=== PATIENT | female | born 1950 | race Caucasian/White ===

== ENCOUNTER 2018-08-22 02:23 | Outpatient (CLI) | payer MEDICARE, SELFPAY | END 2018-08-22 02:43 | PROVIDERS: PCP Family Medicine; Visit Provider Specialist/Technologist Athletic Trainer | DX: R69 Illness, unspecified (principal) ==

== ENCOUNTER 2022-02-01 16:43 | Outpatient (REF) | payer MEDICARE, SELFPAY ==
[2022-02-01 16:39] LABS: HCT 41.1 % (36.0-46.0); HGB 13.6 g/dL (11.2-15.7); MCH 29.3 pg (27.0-33.0); MCHC 33.1 % (32.0-36.0); MCV 89 fL (80-95); MPV 10.5 fL (8.0-11.0); Platelet Count 246 10^3/uL (130-400); RBC 4.64 10^6/uL (3.93-5.22); RDW 12.9 % (11.7-14.6); RDW-SD 41.9 fL
[2022-02-01 17:10] LABS: TSH (W/Ref FT4) 3.27 uIU/mL (0.36-3.74)
[2022-02-02 04:49] LABS: Vitamin D 25 Total 36.1 ng/mL (30-100)
== END 2022-02-01 16:44 | disposition home or self-care (01) ==
LOC: NCHCN 16:43
PROVIDERS: PCP Family Medicine; Visit Provider Nurse Practitioner Family
DX: R53.83 Other fatigue (principal); F41.8 Other specified anxiety disorders
CPT/HCPCS: 82306; 85027; 84443

== ENCOUNTER 2022-07-14 11:11 | Outpatient (REF) | payer MEDICARE, SELFPAY ==
[2022-07-14 15:13] LABS: HGB 11.4 g/dL (11.2-15.7); MCH 28.1 pg (27.0-33.0); MCHC 31.7 % (32.0-36.0); MCV 89 fL (80-95); MPV 10.3 fL (8.0-11.0); Platelet Count 259 10^3/uL (130-400); RBC 4.06 10^6/uL (3.93-5.22); RDW 14.1 % (11.7-14.6); WBC 12.23 10^3/uL (4.4-10.8)
== END 2022-07-14 11:12 | disposition home or self-care (01) ==
LOC: NCHCN 11:11
PROVIDERS: PCP Family Medicine; Visit Provider Family Medicine
DX: J18.9 Pneumonia, unspecified organism (principal); R09.02 Hypoxemia; E87.6 Hypokalemia
CPT/HCPCS: 85027

== ENCOUNTER 2022-08-07 16:55 | Outpatient (REF) | payer MEDICARE, SELFPAY ==
[2022-08-07 20:27] LABS: ALT 12 U/L (14-59); AST 20 U/L (15-37); Albumin 3.6 g/dL (3.4-5.0); Alkaline Phosphatase 139 U/L (46-116); BUN 24 mg/dL (7-18); Bilirubin, Total 0.4 mg/dL (0.2-1.0); CREATININE 1.1 mg/dL (0.55-1.02); Calcium 9.1 mg/dL (8.5-10.1); Chloride 103 mmol/L (98-107); Estimated GFR 53.06 (mL/min/1.73m2); Glucose 104 mg/dL (74-106); Potassium 3.4 mmol/L (3.5-5.1); Sodium 140 mmol/L (136-145); Total Protein 7.1 g/dL (6.4-8.2)
== END 2022-08-07 16:56 | disposition home or self-care (01) ==
LOC: NCHCN 16:55
PROVIDERS: PCP Family Medicine; Visit Provider Family Medicine
DX: J18.9 Pneumonia, unspecified organism (principal); R09.02 Hypoxemia; E87.6 Hypokalemia; R53.83 Other fatigue
CPT/HCPCS: 80053

== ENCOUNTER 2022-10-05 00:54 | Outpatient (CLI) | payer MEDICARE, SELFPAY ==
--- NOTE | 2022-10-05 | DI.CT_ITS ---
Exam(s) CT CHEST W EXAM: CT CHEST W CLINICAL HISTORY: ABNL CHEST CT, R91.8, F/U CT [facility]ONE [facility] 03/20/22/05/22/22 TECHNIQUE: Imaging Protocol: Axial computed tomography images with coronal and sagittal reformatted images were created and reviewed CONTRAST MATERIAL: Intravenous: Omnipaque 350 Contrast volume:85 ml. COMPARISON: CT CT ANGIO CHEST from 05/22/2022 FINDINGS: Pulmonary parenchyma: No consolidation. No dominant measurable mass. Minimal right upper lobe scarri ng. Tracheobronchial tree: No bronchiectasis or mucous plugging. Mediastinum and Fatimah: No dominant adenopathy or fluid collection. Pleura: No effusion or pneumothorax. Heart: The heart is not dilated. No coronary artery calcifications are seen. Aorta: Thoracic aorta non-dilated. Upper abdomen: Status post cholecystectomy. Stable biliary dilatation. Bones: Degenerative changes. Soft tissues: Unremarkable. IMPRESSION: Complete clearing of previously noted right upper lobe pneumonia. No new abnormality. RADIATION DOSE DELIVERED: 392.66mGy.cm Total DLP DATA REPOSITORY: All CT scans at this facility are submitted to the National Radiology Data Registry (NRDR) Dose Index Registry (DIR) with the [employer] (A[employer]). RADIATION OPTIMIZATION: All CT scans at this facility use at least one of these dose optimization te chniques: automated exposure control; mA and/or kV adjustment per patient size (includes targeted exa ms where dose is matched to clinical indication); or iterative reconstruction.
[2022-10-05 13:59] LABS: Anion Gap 5.8 mmol/L (3-11); BUN 25 mg/dL (7-18); CO2 28.2 mmol/L (21.0-32.0); CREATININE 0.9 mg/dL (0.55-1.02); Calcium 8.9 mg/dL (8.5-10.1); Chloride 105 mmol/L (98-107); Glucose 132 mg/dL (74-106); Potassium 3.4 mmol/L (3.5-5.1); Sodium 139 mmol/L (136-145)
[2022-10-05] MEDS: Omnipaque 350 MG/ML 500 ML BTL-Imaging package 100 ML IJ (14:25)
[2022-10-05] MEDS: Normal Saline - Diluent 50 ML VIAL IJ (14:26)
== END 2022-10-05 01:14 ==
LOC: DI 00:55
PROVIDERS: PCP Family Medicine; Visit Provider Nurse Practitioner Family
DX: R91.8 Other nonspecific abnormal finding of lung field (principal); J98.4 Other disorders of lung; E87.6 Hypokalemia; I10 Essential (primary) hypertension
CPT/HCPCS: 80048; 71260

== ENCOUNTER → 2022-10-25 13:10 | Outpatient (BNVA) | payer MEDICARE, SELFPAY | PROVIDERS: PCP Family Medicine; Referring Provider Family Medicine; Visit Provider Psychiatry & Neurology Neurology | DX: G25.0 Essential tremor (principal); R26.89 Other abnormalities of gait and mobility; Z98.890 Other specified postprocedural states; Z90.710 Acquired absence of both cervix and uterus | CPT/HCPCS: 99204 ==

== ENCOUNTER 2022-10-30 15:52 | Outpatient (REF) | payer MEDICARE, SELFPAY ==
[2022-10-30 19:45] LABS: Hemoglobin A1C 5.8 % (<5.7)
[2022-10-30 20:10] LABS: Vitamin B12 491 pg/mL (193-986)
[2022-11-01 13:02] LABS: Albumin g/dL 3.9 g/dL (3.6-5.2); Total Protein 6.9 g/dL (6.3-8.2)
[2022-11-03 13:54] LABS: Methylmalonic Acid 0.17 nmol/mL (<=0.40)
== END 2022-10-30 15:53 | disposition home or self-care (01) ==
LOC: NCHCN 15:52
PROVIDERS: PCP Family Medicine; Visit Provider Nurse Practitioner Family
DX: R27.0 Ataxia, unspecified (principal); G25.0 Essential tremor; Z51.81 Encounter for therapeutic drug level monitoring; Z79.899 Other long term (current) drug therapy; R73.09 Other abnormal glucose
CPT/HCPCS: 80186; 82607; 83036; 83874; 84165

== ENCOUNTER 2023-03-12 16:04 | Outpatient (REF) | payer OTHER, SELFPAY ==
[2023-03-12 16:19] LABS: HCT 40.9 % (36.0-46.0); HGB 13.4 g/dL (11.2-15.7)
[2023-03-12 16:37] LABS: Anion Gap 7.5 mmol/L (3-11); BUN 13 mg/dL (7-18); C-Reactive Protein 0.61 mg/dL (0.0-0.3); CO2 28.5 mmol/L (21.0-32.0); CREATININE 0.7 mg/dL (0.55-1.02); Calcium 9.1 mg/dL (8.5-10.1); Chloride 102 mmol/L (98-107); Estimated GFR 91.26 (mL/min/1.73m2); Glucose 112 mg/dL (74-106); Potassium 3.8 mmol/L (3.5-5.1); Sodium 138 mmol/L (136-145)
[2023-03-12 16:40] LABS: ESR 18 mm/hr (0-30)
[2023-03-12 22:18] LABS: Rheumatoid Factor <8.6 IU/mL (<12.0)
== END 2023-03-12 16:05 | disposition home or self-care (01) ==
LOC: NCHCN 16:04
PROVIDERS: Visit Provider Family Medicine
DX: R27.0 Ataxia, unspecified (principal); F11.20 Opioid dependence, uncomplicated; R73.03 Prediabetes; M25.511 Pain in right shoulder; R25.1 Tremor, unspecified
CPT/HCPCS: 80048; 85652; 85014; 85018; 86140; 86431

== ENCOUNTER → 2023-08-10 14:46 | Outpatient (CLI) | payer OTHER, SELFPAY ==
--- NOTE | 2023-08-10 | DI.RAD_ITS ---
Exam(s) XR CHEST 2V PA LATERAL EXAM: XR CHEST 2V PA LATERAL CLINICAL HISTORY: COUGH R05.9 TECHNIQUE: 2D digital imaging was performed of the chest. Two images were obtained. PA and lateral views were obtained. COMPARISON: CR XR CHEST SINGLE VIEW from 05/22/2022 FINDINGS: MEDIASTINUM: Normal. HEART: Normal. PULMONARY VASCULATURE: Normal. LUNGS: Clear. PLEURAL SPACE: No pleural effusion or pneumothorax. BONE:Within normal limits for the patient's age. There are marked degenerative changes seen at the l eft glenohumeral joint. OTHER FINDINGS:Normal. IMPRESSION: No acute pulmonary findings. DATA REPOSITORY: RADIATION DOSE DELIVERED:
== END ==
PROVIDERS: PCP Family Medicine; Visit Provider Nurse Practitioner Family
DX: R05.9 Cough, unspecified (principal)
CPT/HCPCS: 71046

== ENCOUNTER 2023-08-30 15:43 | Outpatient (REF) | payer OTHER, SELFPAY ==
[2023-08-30 18:46] LABS: Abs Immature Grans 0.02 10^3/uL (0.0-0.06); Absolute Basophil Count 0.08 10^3/uL (0.0-0.2); Absolute Eosinophil Count 0.34 10^3/uL (0.0-0.7); Absolute Monocyte Count 0.46 10^3/uL (0.1-0.8); Absolute Neutrophil Count 5.26 10^3/uL (1.2-6.7); Eosinophils % 4.2; HCT 44.2 % (36.0-46.0); HGB 14.3 g/dL (11.2-15.7); Immature Grans % 0.2; Lymphocytes % 23.6; MCH 28.2 pg (27.0-33.0); MCHC 32.4 % (32.0-36.0); MCV 87 fL (80-95); Monocytes % 5.7; Neutrophils % 65.3; Platelet Count 293 10^3/uL (130-400); RBC 5.07 10^6/uL (3.93-5.22); RDW 12.8 % (11.7-14.6); RDW-SD 40.3 fL; WBC 8.06 10^3/uL (4.4-10.8)
[2023-08-30 19:09] LABS: ALT 21 U/L (14-59); AST 21 U/L (15-37); Albumin 3.7 g/dL (3.4-5.0); Alkaline Phosphatase 163 U/L (46-116); Anion Gap 9.9 mmol/L (3-11); BUN 21 mg/dL (7-18); Bilirubin, Total 0.4 mg/dL (0.2-1.0); CO2 29.1 mmol/L (21.0-32.0); CREATININE 0.9 mg/dL (0.55-1.02); Calcium 9.2 mg/dL (8.5-10.1); Calculated LDL 131 mg/dL (<100); Chloride 102 mmol/L (98-107); Cholesterol 226 mg/dL (<200); Estimated GFR 67.08 (mL/min/1.73m2); Glucose 89 mg/dL (74-106); HDL Cholesterol 80 mg/dL (40-60); Magnesium 1.9 mg/dL (1.8-2.4); Potassium 3.9 mmol/L (3.5-5.1); Sodium 141 mmol/L (136-145); TSH (W/Ref FT4) 2.61 uIU/mL (0.36-3.74); Total Protein 7.4 g/dL (6.4-8.2); Triglyceride 77 mg/dL (<150)
[2023-08-30 19:13] LABS: Hemoglobin A1C 5.5 % (<5.7)
== END 2023-08-30 15:44 | disposition home or self-care (01) ==
LOC: NCHCN 15:43
PROVIDERS: PCP Family Medicine; Visit Provider Nurse Practitioner Family
DX: D64.9 Anemia, unspecified (principal); I10 Essential (primary) hypertension; E78.5 Hyperlipidemia, unspecified; R73.03 Prediabetes; F41.8 Other specified anxiety disorders; K21.9 Gastro-esophageal reflux disease without esophagitis
CPT/HCPCS: 80053; 80061; 83036; 83735; 84443; 85025

== ENCOUNTER → 2023-10-03 04:35 | Outpatient (CLI) | payer OTHER, SELFPAY ==
--- NOTE | 2023-10-03 10:30 | DI.US_ITS ---
APPROVED REPORT EXAM: Comprehensive 2D, Doppler, and color-flow Echocardiogram Patient Location: Out-Patient Attendance Secretary: Elena Zhong RDCS (AE) Indications: Dyspnea Other Information Study Quality: Adequate. Technically limited study due to body habitus. Conclusion Normal left ventricular wall thickness and chamber size. EF is 60%. Wall motion is normal . diastolic function is normal for age Normal right ventricular size and function Both atria are n ormal in size Mildly sclerotic trileaflet aortic valve without stenosis or regurgitation Mild mitral and tricuspid regurgitation Estimated right ventricular systolic pressure is 35 mmHg Wall motion Left Ventricle The left ventricle is normal size. The left ventricular systolic function is normal. The left ventric ular ejection fraction is within the normal range. There is normal left ventricular wall thickness. T here is normal LV segmental wall motion. There is no ventricular septal defect visualized. LVEF is 60 %. Right Ventricle The right ventricle is normal size. The right ventricular systolic function is normal. Atria The left atrium size is normal. The right atrium size is normal. The interatrial septum is intact wit h no evidence for an atrial septal defect. Aortic Valve The Aortic valve is mildly sclerotic. Aortic valve is trileaflet. There is no aortic valvular stenosi s. No aortic regurgitation is present. Mitral Valve The mitral valve is normal in structure. No evidence of mitral valve stenosis. Mild mitral regurgita tion. Tricuspid Valve The tricuspid valve is normal in structure. There is no tricuspid valve stenosis. mild tricuspid reg urgitation. The RVSP is 34.6 mmHg. Pulmonic Valve The pulmonary valve is normal in structure. There is no pulmonic valvular stenosis. Trace pulmonic re gurgitation. Great Vessels The aortic root is normal in size. Ascending aorta is not well visualized. Aortic arch is normal in c aliber. IVC is normal in size and collapses >50% with inspiration. Pericardium There is no pericardial effusion. 2D Dimensions IVSD d PLAX 0.93 cm F: 0.6-1.0 Ao Root d 2.55 cm F: 2.7 - 3.3 LVPW d PLAX 0.90 cm F: 0.6 - 1.0 LVID d PLAX 4.29 cm F: 3.8 - 5.2 LVDs 2.93 cm F: 2.2 - 3.5 LV EF Teichholz 60.2 % FS 31.81 % LV EDV (Teich) 82.8 mL LV ESV (Teich) 33.0 mL M-Mode TAPSE 2.72 cm (M/F) >1.7 Auto EF LV EDV A4C 79.2 mL LV EDV A2C 69.7 mL LV EDV BP 73.9 mL LV ESV A4C 31.2 mL LV ESV A2C 27.4 mL LV ESV BP 29.3 mL LVEF(%) A4C 60.6 % LVEF(%) A2C 60.6 % LVEF(%) BP 60.3 % LV SV A4C 48.0 ml LV SV A2C 42.2 ml LV SV BP 44.6 ml LV CO A4C 3.5 L/min LV CO A2C 3.1 L/min LV CO BP 3.3 L/min HR A4C 72.43 BPM HR A2C 73.03 BPM LV EDV Index (BP) LA Volume LA Length A4C 4.1 cm LA Length A2C 4.2 cm LA Area A4C s 12.88 cm2 LA Area A2C s 14.47 cm2 LA Vol A4C A-L 34.18 mL LA Vol A2C A-L 42.35 mL LA Vol Biplane A-L 38.4 mL LA Vol/BSA A4C A-L LA Vol/BSA A2C A-L LA Vol/BSA BP A-L 24.9 mL/m2 LA Vol A4C MOD 32.2 mL LA Vol A2C MOD 38.0 mL LA Vol BP MOD 35.2 mL RA Volume RA Area A4C 8.9 cm2 RA ESV A4C (A-L) 17.6mL RA Vol/BSA A4C A-L RA Length A4C 3.8 cm RA ESV A4C (MOD) 17.6mL LV Diastology MV E' medial 0.067 (>0.07 m/s) MV E Vmax 1.03 (0.4-1.3 m/s) MV E/E' MED 15.41 (<14) MV A Vmax 1.20 (0.4-1.3 m/s) MV E' lateral 0.092 (>0.1 m/s) E/A Ratio 0.9 MV E/E' LAT 11.09 (<14) MV E' Average 0.080 m/s MV E/E'(average) 12.90 Aortic Valve AoV Vmax 1.50 m/s LVOT Vmax 1.15 m/s AoV Peak Grad 9.0 mmHg LVOT Peak Grad 5.3 mmHg AoV Area (Vmax) 2.49 cm2 LVOT VTI 0.257 m AoV VTI 0.350 m LVOT Mean Grad 2.9 mmHg AoV Mean Lorenzo. 1.11 m/s LVOT SV 83.08 mL AoV Mean Grad 5.5 mmHg LVOT Diam s 2.00 cm AoV Area (VTI) 2.37 cm2 Velocity Ratio 0.77 Mitral Valve MV DT 259 (160-240 msec) MV Vmax TIPS 1.19 m/s MV Mean Grad 2.9 (<2mmHg) MV VTI 0.370 m Pulmonary Valve PV Vmax 0.93 (0.5-1.5 m/s) RVOT Vmax 0.65 m/s PV Peak Grad 3.5 mmHg RVOT Peak Gr. 1.7 mmHg PV Mean Lorenzo 0.72 m/s RVOT VTI 0.181 m PV Mean Grad 2.3 mmHg RVOT Mean Gr. 0.9 mmHg Tricuspid Valve RA Pressure 3.00 mmHg TR Vmax 2.81 m/s TV S' 0.16 m/s TR Peak Grad 31.6 mmHg RVSP (TR) 34.6 mmHg
== END ==
PROVIDERS: PCP Family Medicine; Visit Provider Family Medicine
DX: R06.00 Dyspnea, unspecified (principal)
CPT/HCPCS: 93306

== ENCOUNTER → 2023-11-05 12:41 | Outpatient (BNVA) | payer OTHER, SELFPAY | PROVIDERS: PCP Family Medicine; Referring Provider Family Medicine; Visit Provider Student in an Organized Health Care Education/Training Program | DX: R09.02 Hypoxemia (principal) | CPT/HCPCS: 99205 ==

== ENCOUNTER → 2023-11-12 04:02 | Outpatient (CLI) | payer OTHER, SELFPAY ==
--- NOTE | 2023-11-12 | DI.DEXA_ITS ---
Exam(s) XR DEXA BONE DENSITY W/WO VANDA EXAM: XR DEXA BONE DENSITY W/WO VANDA CLINICAL HISTORY: SCREENING OSTEOPOROSIS, Z78.0, ASYMPTOMATIC MENOPAUSAL STATE TECHNIQUE: [employer] Horizon C densitometer analysis of left hip, lumbar spine and left forearm. Lat eral survey image of the thoracic and lumbar spine. COMPARISON: 2005 FINDINGS: Lateral view of the thoracic and lumbar spine shows no evidence of compression fractures. Bone mineral density measurements of the lumbar spine correspond to a total T-score of 3.1, in the n ormal range. This represents a 35.7 percent increase from 2005. The L3 vertebral body was excluded. The increase in bone density could be in part secondary to degenerative changes noted at L1-2. The L4 vertebral body T-score is 2.2. Bone mineral density measurements of the left hip correspond to a total T-score of -0.2. The femora l neck T-score is -0.6, in the normal range. This represents a 4.9 percent increase from 2005.. Theleft forearm bone mineral density measurements correspond to a T-score of the distal 3rd of -0.5, in the normal range. The forearm was not analyzed in 2004.. IMPRESSION: Normal bone mineral density.
--- NOTE | 2023-11-12 12:20 | DI.MAMMO_ITS ---
Exam(s) MAMMO SCREENING EXAM: MAMMO SCREENING CLINICAL HISTORY: SCREENING, Z12.31. TECHNIQUE: Bilateral full field digital CC and MLO mammographic images were obtained with 3D tomosyn thesis and utilizing computer aided detection (CAD). COMPARISON: None. Last mammogram was 2013 and not available for comparison. FINDINGS: There are no spiculated masses nor malignant appearing microcalcification groups. There is no significant architectural distortion nor skin thickening-retraction. IMPRESSION: No radiographic evidence of malignancy. BI-RADS Category 1 - Negative Breast Density - Category B - Scattered areas of fibroglandular density Breast density Category C or D implies that the patient has dense breast tissue. Dense breast tissue can make it harder to find cancer on a mammogram. Dense breast tissue is also associated with an incr eased risk of breast cancer. This information about the result of the mammogram report was provided to the patient to raise their awareness. Use this report when you speak with the patient about their risks for breast cancer, which includes their family history. At that time, you may recommend additional screening tests (Ultrasoun d or MRI) as these tests may add significant information. A negative radiographic report should not delay biopsy if a dominant or clinically suspicious mass is present. Up to ten percent of cancers are not identified on mammography. A negative report may reinforce clinical impression. Adenosis and dense breasts may obscure an underlying neoplasm. False positive reports average 6 to 10%. Patient will receive a letter notifying them of these results.
== END ==
PROVIDERS: PCP Family Medicine; Visit Provider Family Medicine
DX: Z78.0 Asymptomatic menopausal state (principal); Z13.820 Encounter for screening for osteoporosis; Z12.2 Encounter for screening for malignant neoplasm of respiratory organs
CPT/HCPCS: 77063; 77067; 77080

== ENCOUNTER 2023-12-20 03:01 | Outpatient (CLI) | payer OTHER, SELFPAY ==
[2023-12-20 13:30] LABS: BE 6 mmol/L (-2-3); HCO3 31 mmol/L (22-26); pCO2 49 mmHg (35-45); pO2 103 mmHg (80-105); sO2 98 % (95-98); tCO2 28 mmol/L (23-27)
[2023-12-20 13:31] LABS: FIO2L 2 L; Site Right Radial
== END 2023-12-20 03:02 | disposition home or self-care (01) ==
LOC: RT 03:02
PROVIDERS: PCP Family Medicine; Visit Provider Student in an Organized Health Care Education/Training Program
DX: R09.02 Hypoxemia (principal); R06.00 Dyspnea, unspecified; R05.9 Cough, unspecified
CPT/HCPCS: 82805

== ENCOUNTER 2023-12-20 03:02 | Outpatient (CLI) | payer OTHER, SELFPAY ==
[2023-12-20] MEDS: Albuterol HFA 18 GM 200 PUFF INH IH (15:11)
[2023-12-20] MEDS: Inhaler, Assist Device 1 EACH MC (15:11)
[2023-12-20] MEDS: Methacholine 100 MG VIAL IH (15:11)
--- NOTE | 2024-01-01 08:52 | W.PFT ---
Date of service: 12/20/23 Time of Service: 13:16 Pulmonary Function Test Result Requesting Provider Terra Yee Indications: Hypoxia Interpretation Spirometry: decreased FEV1/FVC w/ moderate decrease in FEV1. No reversibility after albuterol. Impression Moderate obstructive ventilatory defect w/ no reversibility after albuterol. Flow volume curve suggests obstruction. Clinical Correlation therefore is recommended.
== END 2023-12-20 03:03 | disposition home or self-care (01) ==
LOC: RT 03:03
PROVIDERS: PCP Family Medicine; Visit Provider Student in an Organized Health Care Education/Training Program
DX: R09.02 Hypoxemia (principal); J44.9 Chronic obstructive pulmonary disease, unspecified
CPT/HCPCS: 00123; 94060; 94070; 94726; 94729; 36600; 94010; J7674

== ENCOUNTER → 2024-01-17 10:35 | Outpatient (BNVA) | payer OTHER, SELFPAY | PROVIDERS: PCP Family Medicine; Referring Provider Family Medicine; Visit Provider Physician Assistant Surgical | DX: J45.909 Unspecified asthma, uncomplicated (principal); R09.02 Hypoxemia; F51.04 Psychophysiologic insomnia | CPT/HCPCS: 99214 ==

== ENCOUNTER 2024-07-24 17:35 | Outpatient (REF) | payer MEDICARE, SELFPAY ==
[2024-07-24 19:46] LABS: ALT 53 U/L (14-59); AST 24 U/L (15-37); Albumin 3.6 g/dL (3.4-5.0); Alkaline Phosphatase 278 U/L (46-116); Anion Gap 7.7 mmol/L (3-11); BUN 13 mg/dL (7-18); Bilirubin, Total 0.35 mg/dL (0.2-1.0); CO2 30.3 mmol/L (21.0-32.0); CREATININE 0.8 mg/dL (0.55-1.02); Calcium 9.3 mg/dL (8.5-10.1); Chloride 103 mmol/L (98-107); Estimated GFR 76.79 (mL/min/1.73m2); Glucose 94 mg/dL (74-106); Potassium 4.4 mmol/L (3.5-5.1); Sodium 141 mmol/L (136-145); Total Protein 7.5 g/dL (6.4-8.2); Vitamin B12 541 pg/mL (193-986)
== END 2024-07-24 17:36 | disposition home or self-care (01) ==
LOC: NCHCN 17:35
PROVIDERS: PCP Family Medicine; Visit Provider Family Medicine
DX: I10 Essential (primary) hypertension (principal)
CPT/HCPCS: 80053; 82607; 84443

== ENCOUNTER 2024-09-19 14:02 | Outpatient (REF) | payer MEDICARE, SELFPAY ==
[2024-09-26 07:46] LABS: Codeine Negative ng/mL (Cutoff: 25); Dihydrocodeine 4084 ng/mL (Cutoff: 25); Hydrocodone 7035 ng/mL (Cutoff: 25); Hydromorphone 313 ng/mL (Cutoff: 25); Morphine Negative ng/mL (Cutoff: 25); Naloxone 225 ng/mL (Cutoff: 25); Norhydrocodone 14428 ng/mL (Cutoff: 25); Noroxycodone Negative ng/mL (Cutoff: 25); Noroxymorphone Negative ng/mL (Cutoff: 25); Opiates Interpretation Positive.
== END 2024-09-19 14:03 | disposition home or self-care (01) ==
LOC: NCHCN 14:02
PROVIDERS: PCP Family Medicine; Visit Provider Nurse Practitioner Family
DX: Z79.891 Long term (current) use of opiate analgesic
CPT/HCPCS: 80361; 80362; 80365

== ENCOUNTER → 2024-10-23 14:31 | Outpatient (BNVA) | payer MEDICARE, SELFPAY | PROVIDERS: PCP Family Medicine; Referring Provider Family Medicine; Visit Provider Physician Assistant Surgical | DX: J45.909 Unspecified asthma, uncomplicated (principal); I50.9 Heart failure, unspecified; R09.02 Hypoxemia; F51.04 Psychophysiologic insomnia | CPT/HCPCS: 99214; 94618; 99205 ==

== ENCOUNTER 2024-10-23 15:48 | Outpatient (CLI) | payer MEDICARE, SELFPAY ==
[2024-10-23 16:01] LABS: Abs Immature Grans 0.02 10^3/uL (0.0-0.06); Absolute Basophil Count 0.07 10^3/uL (0.0-0.2); Absolute Eosinophil Count 0.27 10^3/uL (0.0-0.7); Absolute Lymphocyte Count 2.33 10^3/uL (1.2-3.4); Absolute Monocyte Count 0.73 10^3/uL (0.1-0.8); Absolute Neutrophil Count 6.49 10^3/uL (1.2-6.7); Basophils % 0.7 %; Eosinophils % 2.7 %; HCT 40.9 % (36.0-46.0); HGB 13.4 g/dL (11.2-15.7); Immature Grans % 0.2 %; Lymphocytes % 23.5 %; MCH 29.2 pg (27.0-33.0); MCHC 32.8 % (32.0-36.0); MCV 89 fL (80-95); MPV 9.3 fL (8.0-11.0); Monocytes % 7.4 %; Neutrophils % 65.5 %; Platelet Count 260 10^3/uL (130-400); RBC 4.59 10^6/uL (3.93-5.22); RDW 13.8 % (11.7-14.6); RDW-SD 44.9 fL; WBC 9.91 10^3/uL (4.4-10.8)
[2024-10-23 17:51] LABS: ALT 171 U/L (14-59); AST 79 U/L (15-37); Albumin 3.9 g/dL (3.4-5.0); Alkaline Phosphatase 348 U/L (46-116); Anion Gap 9.3 mmol/L (3-11); BUN 22 mg/dL (7-18); Bilirubin, Total 0.4 mg/dL (0.2-1.0); CO2 29.7 mmol/L (21.0-32.0); CREATININE 0.7 mg/dL (0.55-1.02); Calcium 9.7 mg/dL (8.5-10.1); Chloride 103 mmol/L (98-107); Estimated GFR 90.14 (mL/min/1.73m2); Glucose 101 mg/dL (74-106); NT-proBNP 123 pg/mL (<300); Sodium 142 mmol/L (136-145); Total Protein 7.3 g/dL (6.4-8.2)
== END 2024-10-23 15:49 | disposition home or self-care (01) ==
LOC: LBO 15:49
PROVIDERS: PCP Family Medicine; Visit Provider Physician Assistant Surgical
DX: J45.909 Unspecified asthma, uncomplicated (principal); I50.9 Heart failure, unspecified
CPT/HCPCS: 36415; 80053; 83880; 85025

== ENCOUNTER 2024-10-27 02:55 | Outpatient (CLI) | payer MEDICARE, SELFPAY ==
[2024-10-27 22:56] LABS: HBs Antibody, Qual Negative (See Note); HBs Antibody, Quant 7.3 mIU/mL (See Note); Hepatitis B Core Antibody Negative (Negative); Hepatitis B surface Ag Negative (Negative); Hepatitis C Ab w Rflx HCV PCR Negative (Negative)
[2024-10-27 22:58] LABS: Hepatitis A Antibody IgM Negative (Negative); Hepatitis B Core Antibody Negative (Negative); Hepatitis B surface Ag Negative (Negative); Hepatitis C Ab w Rflx HCV PCR Negative (Negative)
== END 2024-10-27 02:56 | disposition home or self-care (01) ==
LOC: LBO 02:55
PROVIDERS: PCP Family Medicine; Visit Provider Physician Assistant Surgical
DX: R79.89 Other specified abnormal findings of blood chemistry (principal)
CPT/HCPCS: 36415; 86704; 86706; 86709; 86803; 87340

== ENCOUNTER 2025-01-02 14:14 | Outpatient (REF) | payer MEDICARE, SELFPAY ==
[2025-01-02 16:04] LABS: ALT 54 U/L (14-59); AST 28 U/L (15-37); Albumin 3.8 g/dL (3.4-5.0); Alkaline Phosphatase 362 U/L (46-116); Anion Gap 8.6 mmol/L (3-11); BUN 15 mg/dL (7-18); Bilirubin, Total 0.4 mg/dL (0.2-1.0); CO2 32.4 mmol/L (21.0-32.0); Calcium 9.2 mg/dL (8.5-10.1); Chloride 101 mmol/L (98-107); Estimated GFR 97.75 (mL/min/1.73m2); Glucose 101 mg/dL (74-106); Potassium 3.9 mmol/L (3.5-5.1); Sodium 142 mmol/L (136-145); Total Protein 7.3 g/dL (6.4-8.2)
== END 2025-01-02 14:15 | disposition home or self-care (01) ==
LOC: NCHCN 14:14
PROVIDERS: PCP Family Medicine; Visit Provider Family Medicine
DX: I10 Essential (primary) hypertension (principal)
CPT/HCPCS: 80053

== ENCOUNTER → 2025-02-03 10:55 | Outpatient (BNVA) | payer MEDICARE, SELFPAY | PROVIDERS: PCP Family Medicine; Referring Provider Family Medicine; Visit Provider Physician Assistant Surgical | DX: F51.04 Psychophysiologic insomnia (principal); J45.909 Unspecified asthma, uncomplicated; G47.34 Idiopathic sleep related nonobstructive alveolar hypoventilation | CPT/HCPCS: 99214 ==

== ENCOUNTER → 2025-03-03 13:57 | Outpatient (BNVA) | payer MEDICARE, SELFPAY | PROVIDERS: PCP Family Medicine; Referring Provider Family Medicine; Visit Provider Physician Assistant Surgical | DX: F51.04 Psychophysiologic insomnia (principal); G47.34 Idiopathic sleep related nonobstructive alveolar hypoventilation; J44.9 Chronic obstructive pulmonary disease, unspecified; R06.09 Other forms of dyspnea; Z71.89 Other specified counseling; J45.909 Unspecified asthma, uncomplicated; Z23 Encounter for immunization | CPT/HCPCS: 90471; 96372; 99214 ==

== ENCOUNTER 2025-03-09 00:07 | Outpatient (CLI) | payer MEDICARE, SELFPAY ==
--- NOTE | 2025-03-09 06:18 | DI.NM_ITS ---
APPROVED REPORT Exam: Pharmacologic Patient Location: Out-Patient Room/Bed: Stress Nurse: Juany Salgado RN, Liza Meadows RN Ordering Provider:REJI EDINSON, Contact Number: [phone] BMI: 28.89 Baseline Rhythm: Sinus Rhythm Indications: dyspnea on exertion Medical History Medical History: Opioid dependence, HTN, anxiety,hypoxemia, GERD, tremor,chronic cough, nerve root disorder, HLD, depression, COVID, mild memory disturbance, COPD, nocturnal hypoxia, asthma, prediabetes, ataxia Cardiac Medications: albuterol sulfate, amlodipine, aspirin, symbicort, celecoxib, duloxetine, ipratropium albuterol, mag oxide, morphine ER, mirtazapine,nitro, omeprazole Allergies: Codeine, clorthalidone,prozac Cardiac Risk Factors: family hx, HTN, HLD, COPD, asthma Previous Cardiac Procedures: none Pretest Chest Pain Characteristics: No chest pain Exercise History: Sedentary Physical Disabilities: none Lung Sounds: Clear to auscultation Heart Sounds: Regular Stress Test Details Test: Pharmacologic stress was paired with low level exercise. Reason for pharmacologic stress test: physical limitation. Nuclear Acquisition: Rest Tc-99m/Stress Tc-99m 1 day Rest Isotope: Tc-99m Sestamibi. Dose: 10.0 Date: 03/09/2025 Injection Time: 0850 Stress Isotope: Tc-99m Sestamibi. Dose: 30.0 Date: 03/09/2025 Injection Time: 1032 HR Resting HR Supine: 70 bpm Max Heart Rate (APMHR): 145 bpm Resting HR Standin bpm Target HR (85% APMHR): 123 bpm Max HR Achieved: 96 bpm % of APMHR: 66 Recovery HR: 72 bpm BP Resting BP Supine: 146/76 mmHg Resting BP Standin/84 mmHg Max BP: 154/90 mmHg Recovery BP: 134/76 mmHg ECG Resting ECG: Sinus Rhythm Ectopy: none Stress ECG: Sinus Rhythm ST Change: Nondiagnostic low heart rate Recovery ECG: Sinus Rhythm Recovery ST Change: Nondiagnostic low heart rate Clinical Reason for Termination: Dyspnea Stress Symptoms: moderate to severe SOB Angina Score: none Rate Pressure Product: [id number] Stress ECG Conclusion 1. Resting electrocardiogram was normal 2. Patient underwent testing using a combination of low-level exercise and pharmacologic stress with regadenoson 3. Peak heart rate achieved was 66% of maximal predicted for age 4. The electrocardiographic portion of the test was nondiagnostic 5. See MPI report Stress Test Summary STAGE HR BP SpO2 Symptoms NOTES Supine 70 146/76 94 Standing 71 134/84 94 1 min post Lexiscan injection 82 154/90 3 min post Lexiscan injection 74 146/86 96 6 min post Lexiscan injection 72 134/76 Patient unable to do [place] protocol secondary to a hx of ataxia. Patient had severe shortness of breath and requested to stop treadmill. Denied any chest pain during test. Shortness of breath resolved quickly after stopping test. Patient at baseline upon departure and ambulated of own accord without any complaints. MPI Conclusion Myocardial perfusion is normal. There is no ischemia or evidence of prior infarction Ejection fraction is 79% with normal wall motion
[2025-03-09] MEDS: Regadenoson 0.4 MG/5 ML SYR IVP (11:25)
== END 2025-03-09 00:27 ==
LOC: DI 00:07
PROVIDERS: PCP Family Medicine; Visit Provider Physician Assistant Surgical
DX: R06.09 Other forms of dyspnea (principal)
CPT/HCPCS: 78452; 93016; 93018; 93017; J2785